=== PATIENT | male | born 2000 | race Caucasian/White ===

== ENCOUNTER 2023-09-27 14:05 | Outpatient (OUT) | payer OTHER, SELFPAY ==
--- NOTE | 2023-09-27 14:37 | XR_ITS ---
[place] [id number] Patient Name: NANCY REYEZ MRN: [id number] date: 2000 Sex: M Assigned Patient Location: [facility] Current Patient Location: Accession/Order Number: [id number] Exam Date: 09/27/2023 14:30 Report Date: 09/28/2023 06:00 At the request of: ANSHUL MCDANIELS Procedure: XR knee RT 4V PROCEDURE: XR knee RT 4V HISTORY: Right Knee Pain M25.561 COMPARISON: None. FINDINGS: BONES:No fracture, acute abnormality, or significant arthropathy. SOFT TISSUES:No visible soft tissue swelling. EFFUSION:None visible. OTHER: Negative. XR/XR knee RT 4V IMPRESSION: 1. Normal examination. Electronically authenticated by: MAMIE PAEZ Date: 09/28/2023 06:00
== END 2023-09-27 14:06 | disposition home or self-care (01) ==
LOC: RAD 14:11
PROVIDERS: PCP Family Medicine; Visit Provider Nurse Practitioner Family
DX: M25.561 Pain in right knee (principal)
CPT/HCPCS: 73564

== ENCOUNTER 2023-10-12 10:01 | Outpatient (OUT) | payer OTHER, SELFPAY ==
--- NOTE | 2023-10-12 10:03 | MR_ITS ---
The [place] [id number] Patient Name: NANCY REYEZ MRN: [id number] date: 2000 Sex: M Assigned Patient Location: MRI Current Patient Location: Accession/Order Number: [id number] Exam Date: 10/12/2023 10:07 Report Date: 10/13/2023 04:42 At the request of: ANSHUL MCDANIELS Procedure: MR knee RT wo con EXAMINATION: MR knee RT wo con HISTORY: Right Knee Pain, Internal Derangement Of Right Knee COMPARISON: No relevant comparison available. TECHNIQUE: A complete multi-planar MRI was performed. FINDINGS: MEDIAL COMPARTMENT MEDIAL MENISCUS: No visible tear or significant degeneration. CARTILAGE: No visible defect. BONES: No marrow pathology, fracture, or significant arthropathy. MCL AND MEDIAL CAPSULE: Normal medial collateral ligament and medial capsule. LATERAL COMPARTMENT LATERAL MENISCUS: No visible tear or significant degeneration. CARTILAGE: No visible defect. BONES: No marrow pathology, fracture, or significant arthropathy. LCL/POSTEROLAT COMPLEX: Normal lateral collateral ligament, fascicles, lateral capsule and ligaments. ANTERIOR COMPARTMENT PATELLA: No marrow pathology, fracture, or significant arthropathy. CARTILAGE: No visible defect. TENDONS: Normal. EFFUSION: None. No synovitis or loose bodies. ACL: Normal appearing ligament. PCL: Normal appearing ligament. MENISCOFEMORAL: Normal meniscofemoral ligaments. OTHER: Negative. MR/MR knee RT wo con IMPRESSION: 1. No abnormal or suspicious findings to account for patient's symptoms. Electronically authenticated by: MAMIE PAEZ Date: 10/13/2023 04:42
== END 2023-10-12 10:02 | disposition home or self-care (01) ==
LOC: MRI 10:01
PROVIDERS: PCP Family Medicine; Visit Provider Nurse Practitioner Family
DX: M25.561 Pain in right knee (principal); M23.91 Unspecified internal derangement of right knee
CPT/HCPCS: 73721

== ENCOUNTER 2024-01-15 13:29 | Outpatient (OUT) | payer OTHER, SELFPAY ==
--- NOTE | 2024-01-15 13:36 | US_ITS ---
The [address] [address] Patient Name: NANCY REYEZ MRN: [id number] date: 2000 Sex: M Assigned Patient Location: MRI Current Patient Location: MRI Accession/Order Number: [id number] Exam Date: 01/15/2024 13:40 Report Date: 01/15/2024 14:43 At the request of: CAROLYN HUTSON Procedure: US thyroid EXAMINATION: US thyroid HISTORY: Thyroid Nodule COMPARISON: 06/22/2021 TECHNIQUE: Sonographic images of the thyroid gland were obtained. FINDINGS: The right thyroid lobe is heterogeneous in echotexture measuring 5.2 x 1.7 x 1.8 cm. Single nodule over 5 mm. The thyroid isthmus measures 4 mm, heterogeneous. No focal nodule The left thyroid lobe measures 4.0 x 1.4 x 1.5 cm. Mildly heterogeneous echotexture with no nodule over 5 mm The largest nodule: Right thyroid lobe. 0.7 x 0.4 x 0.5 cm. Solid, hypoechoic, wide, smooth margins, no calcifications. TR 4 US/US thyroid IMPRESSION: Stable 7 mm right thyroid TR 4 nodule TI-RADS: The [employer] TI-RADS committee's white paper recommendations for thyroid lesions classified as TR4 (moderately suspicious) are listed below: > 1.0 cm. Follow-up ultrasound in 1, 2, 3, and 5 years. > 1.5 cm. FNA. J. Am Shalini Radiol 2017;14:587-595. Electronically authenticated by: DALTON ZUNIGA Date: 01/15/2024 14:43
--- NOTE | 2024-01-15 13:36 | MR_ITS ---
The [address] [address] Patient Name: NANCY REYEZ MRN: [id number] date: 2000 Sex: M Assigned Patient Location: Current Patient Location: Accession/Order Number: [id number] Exam Date: 01/15/2024 14:25 Report Date: 01/16/2024 18:46 At the request of: CAROLYN HUTSON Procedure: MR head/brain wo con MR head/brain wo con EXAM DATE: 01/15/2024 12:25 PM MST COMPARISON: None available. INDICATION:Chronic Headache Disorder. TECHNIQUE: MR images of the brain were acquired without and with contrast. FINDINGS: Cerebral contour and volume is within normal limits. No abnormal foci of diffusion restriction or susceptibility. No intracranial hemorrhage. Ventricles are normal in size and morphology. Basal cisterns are patent. No extra-axial fluid collection. No abnormal focus of parenchymal signal abnormality within limits of imaging artifact. Major intracranial flow voids are maintained. The orbits appear normal. Mild left greater than right ethmoid air cell mucosal thickening is nonobstructive. Minimal rightward deviation of the nasal septum. Mastoid air cells are clear. No destructive calvarial lesion. Visualized soft tissues of the face and scalp are within normal limits. MR/MR head/brain wo con IMPRESSION: No acute intracranial abnormality. Electronically authenticated by: YUMIKO REDMOND Date: 01/16/2024 18:46
== END 2024-01-15 13:30 | disposition home or self-care (01) ==
LOC: MRI 13:30
PROVIDERS: PCP Family Medicine; Visit Provider Family Medicine
DX: R51.9 Headache, unspecified (principal); G89.29 Other chronic pain; E04.1 Nontoxic single thyroid nodule
CPT/HCPCS: 70551; 76536